=== PATIENT | male | born 1960 | race Caucasian/White ===

== ENCOUNTER 2017-04-04 11:50 | Inpatient (IN) | payer OTHER ==
[2017-04-04 12:56] LABS: % IMMATURE GRANULYOCYTES 0.1 % (0.0-1.1); ABSOLUTE IMMATURE GRANULOCYTES 0.01 10^3/uL (0.00-0.10); ADD DIFF? NO; ADD MORPH? NO; ADD SCAN? NO; ATYPICAL LYMPHOCYTE FLAG 0 (0-99); FRAGMENT RBC FLAG 0 (0-99); HEMATOCRIT 41.9 % (40.0-51.0); HEMOGLOBIN 14.1 g/dL (13.7-17.5); LEFT SHIFT FLG 0 (0-99); LIPEMIA HEMOLYSIS FLAG 80 (0-99); MEAN CELL HEMOGLOBIN 30.5 pg (27.9-34.1); MEAN CELL HEMOGLOBIN CONCENTR. 33.7 g/dL (32.4-36.7); MEAN CELL VOLUME 90.7 fL (81.5-99.8); MEAN PLATELET VOLUME 8.2 fL (8.7-11.7); PLATELET CLUMPS FLAG 0 (0-99); PLATELET COUNT 371 10^3/uL (150-400); RED BLOOD CELL COUNT 4.62 10^6/uL (4.40-6.38); RED CELL DISTRIBUTION WIDTH 15.4 % (11.5-15.2)
--- NOTE | 2017-04-04 13:02 | EDPHY ---
H & P Stated Complaint: VOMITED BLOOD AND DIZZY HPI/ROS: CHIEF COMPLAINT: Alcoholism, coffee ground vomit, vertigo HISTORY OF PRESENT ILLNESS: The patient is a 56 y/o male with a history of alcoholism arriving with his [id number] complaining of possibly vomiting blood. The patient was sober for three months after moving to this area but relapsed one month ago. A week to ten days ago, he fell and hit his head. His last drink was around midnight or 1:00 AM, 12 hours ago. This morning he vomited once and it had the texture and appearance of coffee grounds. He has been experiencing frequent nosebleeds. He has been taking aspirin frequently over the past month. He denies alcohol withdrawal seizures. He is requesting help with his alcoholism and anticipated withdrawal. He has been to Alcoholics Anonymous and inpatient rehabilitation in the past. He has maintained more extended sobriety in the past. He has had vertigo in the past and is experiencing an episode today. REVIEW OF SYSTEMS: A ten point review of systems was performed and is negative with the exception of the items mentioned in the HPI and the following--neck pain, headaches, possible sleep apnea. Past medical history: 1. Alcoholism 2. Headache Past surgical history: 1. Orthopedic surgeries including ACL, 2 back surgeries, carpal tunnel release Family history: Non-contributory Social history: Moved here 3 months ago, originally from [place], PCP in [place] is Dr. 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 General Appearance: Alert. Vital signs reviewed. Blood pressure 179/112. Eyes: Pupils equal and round, no conjunctival injection, no discharge. Anicteric. ENT, Mouth: Mucous membranes are moist, no oropharyngeal erythema or edema. Neck: No lymphadenopathy, supple. Head: Scab to the occipital area. Respiratory: Lungs are clear to auscultation; no wheezes, rales, or rhonchi. Cardiovascular: Regular rate and rhythm; no murmur, rub, or gallop. Gastrointestinal: Abdomen is soft and nontender, no masses or organomegaly, bowel sounds normal. Skin: Warm and dry, no rashes on exposed skin, normal color. Back: Nontender to palpation over the thoracolumbar spine. No CVAT. Extremities: No lower extremity edema, no calf tenderness or swelling. Neurological: Alert and oriented. Moving all four extremities easily and equally. Psychiatric: Normal affect. - Personal History Current Tetanus Diphtheria and Acellular Pertussis (TDAP): Yes Tetanus Vaccine Date: < 10 YEARS - Medical/Surgical History Hx Asthma: No Hx Chronic Respiratory Disease: No Hx Diabetes: No Hx Cardiac Disease: No Hx Renal Disease: No Hx Cirrhosis: No Hx Alcoholism: Yes Hx HIV/AIDS: No Hx Splenectomy or Spleen Trauma: No Other PMH: HERNIATED CERVICAL DISC, ORTHO SURGERIES - Social History Smoking Status: Never smoked Constitutional: Initial Vital Signs Temperature (C) 36.8 C 04/04/17 11:54 Heart Rate 96 04/04/17 11:54 Respiratory Rate 16 04/04/17 11:54 Blood Pressure 179/112 H 04/04/17 11:54 O2 Sat (%) 94 04/04/17 11:54 O2 Delivery Mode Room Air Allergies/Adverse Reactions: No Known Allergies Allergy (Unverified 04/04/17 11:58) Home Medications: Medication Instructions Recorded Acamprosate Calcium [Campral 333 666 mg PO DAILY 04/04/17 MG (*)] Cyclobenzaprine [Flexeril 10 MG 10 mg PO HS 04/04/17 (*)] DULoxetine [Cymbalta 60 MG (*)] 60 mg PO HS 04/04/17 Gabapentin [Neurontin 300 MG (*)] 300 mg PO HS 04/04/17 Herbals/Supplements -Info Only 1 ea PO DAILY 04/04/17 Metoprolol Succinate Xr [Toprol Xl 50 mg PO DAILY PRN 04/04/17 50 mg (*)] Multivitamins [Multivitamin (*)] 1 each PO DAILY 04/04/17 Naltrexone HCl 50 mg PO DAILY 04/04/17 QUEtiapine FUMARATE [Seroquel 100 100 mg PO HS 04/04/17 mg (*)] traZODone [traZODONE 100MG (*)] 200 mg PO HS 04/04/17 Pantoprazole Sodium [Protonix 40mg 40 mg PO DAILY #30 tab 04/06/17 (*)] chlordiazePOXIDE 25MG PREPK#6 1 btl TAKEHOME DAILY #1 btl 04/06/17 [Librium 25 mg Prepack#6] Medical Decision Making ED Course/Re-evaluation: The patient is a 56 y/o male with a history of alcoholism who relapsed one month ago after being sober for three months. He reports falling a week to ten days ago and hitting is head. He has been taking aspirin frequently and this morning he vomited. The vomit had the consistency and appearance of coffee grounds prompting his visit. In addition he has been experiencing vertigo today. He used inpatient rehabilitation services and alcoholics anonymous prior with success. Due to his use of aspirin, his fall, and his symptoms I will order a head CT to rule out any injury. I suspect he is going through early alcohol withdrawal. Head CT negative for ICH. Bloodwork shows H/H of 14 and 41. No evidence of blood loss anemia. BAL 247. Alk phos elevated. 1410: I reassessed this patient and found his condition unchanged. He is not having symptoms of acute vertigo. 1505: I reassessed this patient and informed him of my plan to keep him here for observation and aid in detoxifying. He is comfortable with this plan. I believe that he is sincere in his desire for sobriety. Differential Diagnosis: I considered a ddx that includes but is not limited to alcohol intoxication, impending alcohol withdrawal, gastritis, pancreatitis. - Data Points Laboratory Results: Laboratory Results 04/04/17 12:52 04/04/17 12:52 Medications Given: Discontinued Medications Acetaminophen (Tylenol) 650 mg PO Q4HRS PRN PRN Reason: Pain, Mild/Fever, Can Take PO Stop: 10/01/17 15:30 Last Admin: 04/05/17 14:29 Dose: 650 mg Duloxetine HCl (Cymbalta) 60 mg PO HS [facility]ERRICK Stop: 10/01/17 20:59 Last Admin: 04/05/17 20:30 Dose: 60 mg Folic Acid (Folic Acid) 1 mg PO DAILY DERRICK Stop: 10/02/17 08:59 Last Admin: 04/06/17 09:39 Dose: 1 mg Gabapentin (Neurontin) 300 mg PO HS D[facility]ICK Stop: 10/01/17 20:59 Last Admin: 04/05/17 20:30 Dose: 300 mg Sodium Chloride (Ns) 1,000 mls @ 0 mls/hr IV ONCE ONE; Wide Open PRN Reason: Protocol Stop: 04/04/17 14:19 Last Admin: 04/04/17 14:27 Dose: 1,000 mls Sodium Chloride (Ns) 1,000 mls @ 0 mls/hr IV ONCE ONE PRN Reason: Wide Open Stop: 04/04/17 15:18 Last Admin: 04/04/17 15:18 Dose: 1,000 mls Sodium Chloride (1/2 Ns) 1,000 mls @ 125 mls/hr IV CONT [facility]ERRICK Stop: 10/01/17 15:44 Last Admin: 04/05/17 08:05 Dose: 1,000 mls Pantoprazole Sodium 40 mg/ (Sodium Chloride) 100 mls @ 200 mls/hr IV ONCE ONE Stop: 04/04/17 15:59 Last Admin: 04/04/17 18:56 Dose: 100 mls Pantoprazole Sodium 80 mg/ (Sodium Chloride) 100 mls @ 10 mls/hr IV Q10H [facility] Stop: 10/01/17 15:29 Last Admin: 04/04/17 16:45 Dose: Not Given Thiamine HCl 500 mg/ Sodium (Chloride) 105 mls @ 210 mls/hr IV DAILY [facility] Stop: 04/05/17 09:29 Last Admin: 04/05/17 09:34 Dose: 105 mls Pantoprazole Sodium 40 mg/ (Sodium Chloride) 100 mls @ 200 mls/hr IV BID [facility] Stop: 10/01/17 20:59 Last Admin: 04/06/17 09:39 Dose: 100 mls Lorazepam (Ativan) 1 mg PO EDNOW ONE Stop: 04/04/17 13:16 Last Admin: 04/04/17 13:21 Dose: 1 mg Lorazepam (Ativan Injection) 1 mg IVP EDNOW ONE Stop: 04/04/17 14:36 Last Admin: 04/04/17 14:37 Dose: 1 mg Lorazepam (Ativan) 1 mg PO Q4HRS PRN PRN Reason: Agitation if able to take PO Stop: 10/01/17 15:30 Last Admin: 04/05/17 20:31 Dose: 1 mg Lorazepam (Ativan Injection) 0.5 - 3 mg IVP Q30M PRN PRN Reason: CIWA-Ar score greater than 15 Stop: 10/01/17 15:30 Last Admin: 04/05/17 05:28 Dose: 2 mg Metoprolol Succinate (Toprol Xl) 50 mg PO DAILY [facility] Stop: 10/01/17 08:59 Last Admin: 04/06/17 09:39 Dose: 50 mg Multivitamins (Tab-A-Alexander) 1 each PO DAILY [facility] Stop: 10/02/17 08:59 Last Admin: 04/06/17 09:39 Dose: 1 each Ondansetron HCl (Zofran Odt) 4 mg PO Q4HRS PRN PRN Reason: Nausea/Vomiting, Use 1st Stop: 10/01/17 15:30 Last Admin: 04/04/17 16:51 Dose: 4 mg Quetiapine Fumarate (Seroquel) 100 mg PO [facility] Stop: 10/01/17 20:59 Last Admin: 04/05/17 20:30 Dose: 100 mg Sodium Bicarbonate (Sodium Bicarbonate) 50 meq IVP ONCE ONE Stop: 04/04/17 15:39 Last Admin: 04/04/17 16:45 Dose: Not Given Trazodone HCl (Trazodone) 200 mg PO [facility] Stop: 10/02/17 21:44 Last Admin: 04/05/17 22:59 Dose: 200 mg Departure - Departure Disposition: [facility] Inpatient Acute Clinical Impression: Alcohol abuse, Coffee ground emesis Condition: Good Report Scribed for: Lor Gilliam Report Scribed by: Hiral Torres Date of Report: 04/04/17 Time of Report: 13:53 Physician Review and Approval Statement: 04/04/17 13:01 Portions of this note were transcribed by the medical researcher. I, Dr. Lor Gilliam, personally performed the history, physical exam, and medical decision- making; and confirmed the accuracy of the information in the transcribed note.
[2017-04-04] MEDS ORDERED: LORazepam 1 MG TAB PO ONE (13:15)
[2017-04-04 13:23] LABS: ALANINE AMINOTRANSFERASE 38 IU/L (21-72); ALBUMIN 4.7 g/dL (3.5-5.0); ALKALINE PHOSPHATASE 205 IU/L (38-126); ANION GAP 29 mEq/L (8-16); ASPARTATE AMINOTRANSFERASE 43 IU/L (17-59); BILIRUBIN,TOTAL 0.6 mg/dL (0.1-1.4); CALCIUM 10.7 mg/dL (8.5-10.4); CARBON DIOXIDE 15 mEq/l (22-31); CHLORIDE 101 mEq/L (97-110); GLOMERULAR FILTRATION RATE > 60; GLUCOSE 101 mg/dL (70-100); MAGNESIUM 2.1 mg/dL (1.6-2.3); POTASSIUM 4.9 mEq/L (3.5-5.2); SODIUM 145 mEq/L (134-144); TOTAL PROTEIN > 11.0 g/dL (6.3-8.2)
[2017-04-04 13:42] LABS: INR 1.14 (0.83-1.16); PROTIME(PATIENT) 14.5 SEC (12.0-15.0)
[2017-04-04 13:43] LABS: APTT 27.8 SEC (23.0-38.0)
[2017-04-04] MEDS ORDERED: NS 1,000 ML IV ONE ×2 (14:18→15:17)
[2017-04-04 14:19] LABS: ETHANOL SERUM 247 mg/dL (0-10)
[2017-04-04] MEDS ORDERED: LORazepam 2 MG/ML INJ ONE (14:34)
[2017-04-04] MEDS ORDERED: LORazepam 2 MG/ML INJ IVP ONE (14:35)
[2017-04-04] MEDS ORDERED: PANTOPRAZOLE SODIUM 40 MG in NS 100 ML IV ONE (15:30)
[2017-04-04] MEDS ORDERED: PANTOPRAZOLE SODIUM 80 MG in NS 100 ML IV SCH ×2 (15:30→17:00)
[2017-04-04] MEDS ORDERED: hydrALAZINE 25 MG TAB PO PRN (15:31)
[2017-04-04] MEDS ORDERED: ONDANSETRON 4 MG/2 ML VIAL IVP PRN (15:31)
[2017-04-04] MEDS ORDERED: ACETAMINOPHEN 325 MG TAB PO PRN (15:31)
[2017-04-04] MEDS ORDERED: ONDANSETRON DISINTEGRATING 4 MG TAB PO PRN (15:31)
[2017-04-04] MEDS ORDERED: LORazepam 1 MG TAB PO PRN (15:31)
[2017-04-04] MEDS ORDERED: SODIUM BICARBONATE 50 MEQ/50 ML SYR IVP ONE (15:38)
--- NOTE | 2017-04-04 16:30 | GHP ---
[f rep st] HISTORY AND PHYSICAL DATE OF ADMISSION: 04/04/2017 CHIEF COMPLAINT: Coffee-grounds emesis and alcohol intoxication with impending withdrawal. HISTORY OF PRESENT ILLNESS: The patient is a 56-year-old male with history of alcoholism, anxiety, and chronic neck pain who presents to the emergency department with his ixxatp-za-qxk after a recent relapse. He states he drinks at least a 5th of day of whichever hard liquor is the least expensive. His last drink was reportedly around midnight the night before arrival. He just moved to the area 3 months ago and maintained sobriety for several months; however, 1 month ago, he began drinking heavily again. He does endorse a history of alcohol withdrawal but denies withdrawal seizures. He awoke early this morning and vomited once. He initially endorsed this as red blood. He later described it is appearing like coffee grounds. His sister- in-law says she thought this looked more like coffee grounds. He has also had some dizziness. He denies BRBPR or melanotic stools. He also reports frequent nosebleeds, which have been intermittent for the past month. He has been taking frequent aspirin and nsaid's for a headache. He reports a history of anxiety, and notes he has had elevated blood pressures in the past related to alcohol withdrawal. In addition, he gives a history of falling and hitting his head approximately [address] scan in the emergency department was negative for an intracranial bleed. He has successfully maintained sobriety in the past with Alcoholics Anonymous and has also done inpatient rehab. He wishes to safely withdraw from alcohol and maintain sobriety and is asking for a resource counseling. He is admitted to the hospital for further evaluation of his coffee-grounds emesis and acute alcohol intoxication with impending withdrawal. PAST MEDICAL HISTORY: 1. Alcohol dependence. 2. History of alcohol withdrawal without prior seizures. 3. Chronic neck pain. 4. Anxiety. PAST SURGICAL HISTORY: Multiple orthopedic surgeries including ACL repair, 2 back surgeries, carpal tunnel, and a previous neck surgery. FAMILY HISTORY: His brother has esophageal cancer. SOCIAL HISTORY: The patient moved here 3 months ago from [place]. He has worked as a sales service professional. He is currently unemployed. He presents with his [id number]. REVIEW OF SYSTEMS: Ten-point review of systems was performed and is negative except as per HPI. OBJECTIVE: VITAL SIGNS: Currently, temperature is 36.7, blood pressure 158/82 , heart rate 89, respiratory rate 16. He is 98% on room air. GENERAL: Patient is awake, alert, and oriented, though generally a poor historian likely secondary to his acute alcohol intoxication. HEENT: Head is atraumatic, normocephalic. Pupils equal, round, and reactive to light. Extraocular muscles intact. Oropharynx is clear. Mucous members are moist. He has a small hematoma on the right parietal scalp region with some dried blood. NECK: Supple. There is no JVD. Regular rate and rhythm without murmur. LUNGS: Clear to auscultation bilaterally. ABDOMEN: Soft, nondistended, nontender with normoactive bowel sounds. EXTREMITIES: Without cyanosis, clubbing, or edema. NEUROLOGIC: Grossly nonfocal. There is no asterixis. No significant tremors noted. LABORATORY DATA: CBC reveals a normal hemoglobin of 14.1, white count is normal. INR is normal at 1.1. His lactic acid is elevated at 5.3. Complete metabolic panel was remarkable for sodium 145, bicarb 15, anion gap of 29, glucose 101, calcium 10.7, alkaline phosphatase 205, total protein greater than 11. Ethyl alcohol level is 247. Head CT from the emergency department is negative for acute intracranial bleed. There is some minimal swelling in the right parietal scalp, which correlates with exam. ASSESSMENT AND PLAN: The patient is a 56-year-old male with history of alcohol dependence who presents to the emergency department reporting coffee-grounds emesis and alcohol intoxication desiring withdrawal management. 1. Acute alcohol intoxication with impending withdrawal. No prior h/o seizures. BAL is 247 in the ED. The patient wishes to maintain sobriety; therefore, he will be admitted for alcohol withdrawal under [facility] protocol in the step down unit. PRN bzd's. He will receive thiamine, vitamins, and folic acid. Case Management consult is requested for further resource counseling to help him develop a sobriety plan at discharge. 2. Coffee-ground emesis. This was an isolated event. It could be related to his frequent nose bleeds possibly passing blood into his stomach. Also note frequent aspirin, nsaid and alcohol use as risk factors for gastritis / PUD dz. I think this is unlikely to be variceal bleed as that would be more likely to present as bright red blood. He is hemodynamically stable. His hemoglobin is 14.1. Will continue to observe him in the step-down unit for any further emesis. I will give him IV Protonix BID. Trend his H&H and hemoccult stool. If he has any further episodes or if his hemoglobin trends down, we will consult GI for possible endoscopy. Dr. Shelton aware, but has not been formally consulted. 3. Anion gap metabolic acidosis. Likely an alcoholic ketoacidosis. He presents with a serum bicarb of 15 with a significant anion gap. Will give him an amp of sodium bicarb now along with IV fluids. Will continue to trend this. 4. Elevated lactic acid. I do not think this represents sepsis. This is likely secondary to his decreased utilization in the setting of alcohol abuse. 5. Elevated blood pressure. Will treat for now with p.r.n. hydralazine. He may warrant initiation of antihypertensives at discharge. 6. Hyperproteinemia. His total serum protein is greater than 11. He has a normal albumin. We will check an SPEP and serum free light chains. 7. Anxiety. Will continue his outpatient medications once his medication reconciliation is completed. 8. Deep venous thrombosis prophylaxis. Pharmacologic is contraindicated given his report of coffee-grounds emesis. Will place SCD's 9. Code status: Patient is full code. 10. Disposition: Patient admitted to inpatient status. Expect he will require greater than 48 hours hospitalization for ongoing management of his impending alcohol withdrawal and associated complications. /[id number]/MODL MTDD
[2017-04-04] MEDS: 1/2 NS 1,000 ML IV SCH (16:46)
[2017-04-04] MEDS: METOPROLOL SUCCINATE XR 50 MG TAB PO SCH (16:52)
--- NOTE | 2017-04-04 16:57 | ASMTCASEMG ---
Living Arrangements What is your living Answers: With Other Relative(s) arrangement? Who do you live with? Type Of Residence What kind of residence do Answers: House you live in? Case Management Evaluation Psychosocial Needs: Answers: Active Substance Abuse Notes: ETOH Discharge Plan Comments Coordination Status Comments Notes: Pt. in FED with his yacjuw-op-cug Clarisa. Pt has a history of alcoholism with a recent relapse after 4 months of sobriety. Pt indicated his last use of alcohol was at 1am and his YARI was 247. Pt stated he is and new to the area; he is currently living with his brother and uwvvxa-uc-fdw. He is employed and has [employer] insurance. He would like local referrals for a PCP and mental health. He is open to mental health services to address his ETOH use and he would also like connections to local AA groups/meetings. Pt also open to inpatient treatment (previous inpatient treatment in [place]). DC plan LEONARDA SEGAL to follow. Date Signed: 04/04/2017 04:57 PM Electronically Signed By:Tatyana Nash LCSW
[2017-04-04] MEDS: THIAMINE HCL 500 MG in NS 100 ML IV SCH (18:56)
[2017-04-04] MEDS: PANTOPRAZOLE SODIUM 40 MG in NS 100 ML IV SCH ×2 (18:56→21:10)
[2017-04-04] MEDS: LORazepam 2 MG/ML INJ IVP PRN ×2 (18:56→20:49)
[2017-04-04 19:50] LABS: PHENCYCLIDINE URINE BCH < 6 ng/ml (NEGATIVE); PHENCYCLIDINE URINE BCH NEGATIVE (NEGATIVE); TETRAHYDROCANNABINOL URINE 79 ng/mL (NEGATIVE)
--- NOTE | 2017-04-04 20:03 | PDMN ---
Medical Necessity Medical necessity: Pt. meets INPT MCG criteria under Substance related disorders for acute alcohol intoxication with persistent impending alcohol withdrawl, (ETOH level 247), coffee ground emesis x 1, anion gap acidosis, elevated lactic acidosis (5.3) requiring ongoing impending alcohol withdrawl management and asssociated complications; > 2 MN LOS anticipated.
[2017-04-04 20:37] LABS: HEMATOCRIT 30.8 % (40.0-51.0); HEMOGLOBIN 10.3 g/dL (13.7-17.5)
[2017-04-04] MEDS: GABAPENTIN 300 MG CAP PO SCH (20:49)
[2017-04-04] MEDS: QUEtiapine FUMARATE 100 MG TAB PO SCH (20:49)
[2017-04-04] MEDS: DULoxetine 60 MG CAP PO SCH (20:49)
[2017-04-04] MEDS ORDERED: DEXMEDETOMIDINE HCL 400 MCG in NS 100 ML IV SCH (21:30)
[2017-04-05] MEDS: LORazepam 2 MG/ML INJ IVP PRN ×2 (00:06→05:28)
[2017-04-05] MEDS: 1/2 NS 1,000 ML IV SCH ×2 (00:10→08:05)
[2017-04-05 03:07] LABS: HEMATOCRIT 33.3 % (40.0-51.0); HEMOGLOBIN 11.4 g/dL (13.7-17.5)
[2017-04-05 05:47] LABS: % IMMATURE GRANULYOCYTES 0.4 % (0.0-1.1); ABSOLUTE IMMATURE GRANULOCYTES 0.02 10^3/uL (0.00-0.10); ADD DIFF? NO; ADD MORPH? NO; ADD SCAN? NO; ATYPICAL LYMPHOCYTE FLAG 0 (0-99); FRAGMENT RBC FLAG 0 (0-99); HEMATOCRIT 34.6 % (40.0-51.0); HEMOGLOBIN 11.5 g/dL (13.7-17.5); LEFT SHIFT FLG 0 (0-99); LIPEMIA HEMOLYSIS FLAG 80 (0-99); MEAN CELL HEMOGLOBIN 30.1 pg (27.9-34.1); MEAN CELL HEMOGLOBIN CONCENTR. 33.2 g/dL (32.4-36.7); MEAN CELL VOLUME 90.6 fL (81.5-99.8); MEAN PLATELET VOLUME 8.2 fL (8.7-11.7); PLATELET CLUMPS FLAG 0 (0-99); PLATELET COUNT 211 10^3/uL (150-400); RED BLOOD CELL COUNT 3.82 10^6/uL (4.40-6.38); RED CELL DISTRIBUTION WIDTH 15.1 % (11.5-15.2)
[2017-04-05 06:01] LABS: ALANINE AMINOTRANSFERASE 32 IU/L (21-72); ALBUMIN 3.8 g/dL (3.5-5.0); ALKALINE PHOSPHATASE 134 IU/L (38-126); ANION GAP 12 mEq/L (8-16); ASPARTATE AMINOTRANSFERASE 34 IU/L (17-59); CALCIUM 9.5 mg/dL (8.5-10.4); CARBON DIOXIDE 23 mEq/l (22-31); CHLORIDE 97 mEq/L (97-110); CREATININE 0.8 mg/dL (0.7-1.3); GLOMERULAR FILTRATION RATE > 60; GLUCOSE 93 mg/dL (70-100); MAGNESIUM 1.8 mg/dL (1.6-2.3); SODIUM 132 mEq/L (134-144); TOTAL PROTEIN 9.5 g/dL (6.3-8.2)
[2017-04-05] MEDS: PANTOPRAZOLE SODIUM 40 MG in NS 100 ML IV SCH ×2 (08:58→21:11)
[2017-04-05] MEDS: FOLIC ACID 1 MG TAB PO SCH (09:00)
[2017-04-05] MEDS: MULTIVITAMINS 1 EACH TAB PO SCH (09:00)
[2017-04-05] MEDS: METOPROLOL SUCCINATE XR 50 MG TAB PO SCH (09:01)
[2017-04-05] MEDS: THIAMINE HCL 500 MG in NS 100 ML IV SCH (09:34)
--- NOTE | 2017-04-05 09:46 | HOSPPROG ---
Hospitalist Progress Note Assessment/Plan: 56 yo M w alcoholism here w coffee ground emesis and blood loss anemia ABLA: concern for UGIB given alcohol and nsaids brother w esophageal CA, patient had normal egd 2 years ago ppi alcoholism: on CIWA mild withdrawal at this point proph: scd's protein gap: mm workup initiated dispo: inpatient Subjective: no further hematemesis. endorses frequent NSAID use. case d/w dr fontenot Objective: Vital Signs Temp Pulse Resp BP Pulse Ox 37.0 C 78 20 155/93 H 96 04/05/17 08:00 04/05/17 09:01 04/05/17 04:00 04/05/17 09:01 04/05/17 08:00 Laboratory Results 04/05/17 05:35 04/05/17 05:35 04/04/17 04/05/17 04/06/17 05:59 05:59 05:59 Intake Total 2278 Output Total 2050 Balance 228 PT 14.5 SEC (12.0-15.0) 04/04/17 12:36 INR 1.14 (0.83-1.16) 04/04/17 12:36 - Physical Exam Constitutional: no apparent distress, appears nourished Eyes: PERRL, anicteric sclera Ears, Nose, Mouth, Throat: moist mucous membranes, hearing normal Cardiovascular: regular rate and rhythym, no murmur, rub, or gallop Respiratory: no respiratory distress, no rales or rhonchi Gastrointestinal: normoactive bowel sounds, soft, non-tender abdomen, No guarding, No rebound Genitourinary: No marie in urethra Skin: warm, normal color Musculoskeletal: full muscle strength, no muscle tenderness Neurologic: AAOx3, sensation intact bilaterally Psychiatric: interacting appropriately, not anxious Lymph, Heme, Immunologic: no cervical LAD
[2017-04-05] MEDS ORDERED: MIDAZOLAM 2 MG/2 ML VIAL ONE (09:49)
[2017-04-05] MEDS ORDERED: PROPOFOL/EMULSION 500 MG/50 ML BOTTLE IV ONE (09:50)
[2017-04-05] MEDS ORDERED: LIDOCAINE 2% 100 MG/5 ML SYR ONE (09:50)
--- NOTE | 2017-04-05 10:16 | GIREPORT ---
[facility] - Endoscopy Department Patient Name: Jose Martin Orellana Procedure Date: 04/05/2017 10:01 AM Patient Type: Inpatient Attending MD/ ER Physician: Jason Shelton MD Procedure: Upper GI endoscopy Indications: Hematemesis Providers: Jason Shelton MD Medicines: Propofol per Anesthesia Complications: No immediate complications. Description of Procedure: After obtaining informed consent, the endoscope was passed under direct vision. Throughout the procedure, the patient's blood pressure, pulse, and oxygen saturations were monitored continuous ly. The Endoscope was introduced through the mouth, and advanced to the second part of duodenum. The upper GI endoscopy was accomplished without difficulty. The patient tolerated the procedure well . Findings: The esophagus was normal. Diffuse mild inflammation characterized by congestion (edema), erythema and granularity was foun d in the gastric fundus, in the gastric body and in the gastric antrum. The examined duodenum was normal. Estimated Blood Loss: Estimated blood loss: none. Post Op Diagnosis: - Normal esophagus. - Alcoholic gastritis. - Normal examined duodenum. - No specimens collected. - No evidence for NSAID induced injury or portal hypertension. Recommendation: - Resume regular diet. - Use Protonix (pantoprazole) 40 mg PO daily for 4 weeks. - [facility]. - Thank you for allowing me to be involved in the care of your patient. Attending Participation: I personally performed the entire procedure without the assistance of a fellow, resident or surg ical server service assistant. Jason Shelton MD Jason Shelton MD 04/05/2017 10:15:59 AM Number of Addenda: 0 Note Initiated On: 04/05/2017 10:01 AM [email or web address]
[2017-04-05] MEDS ORDERED: ALBUTEROL 3 ML DEYVIAL IH PRN (10:26)
[2017-04-05] MEDS ORDERED: NALOXONE HCL 0.4 MG/ML INJ IVP PRN (10:26)
[2017-04-05] MEDS ORDERED: ONDANSETRON 4 MG/2 ML VIAL IVP PRN (10:26)
[2017-04-05] MEDS ORDERED: PROMETHAZINE HCL 25 MG/ML INJ IVP PRN (10:26)
[2017-04-05] MEDS ORDERED: ACETAMINOPHEN 500 MG TAB PO PRN (10:26)
[2017-04-05] MEDS ORDERED: DEXAMETHASONE 4 MG/ML VIAL IVP PRN (10:26)
--- NOTE | 2017-04-05 10:26 | PDANEPAE ---
ANE History of Present Illness Egd for GI bleed ANE Past Medical History - Pulmonary History Hx Oxygen in Use at Home: No Hx Sleep Apnea: No - Endocrine History Hx Diabetes: No - GI History Hx Gastrointestinal Disorders: Yes Gastrointestinal History Comment: GI bleed - Chronic Pain History Chronic Pain: Yes ANE Review of Systems Review of systems is: negative Review of Systems: - Exercise capacity Exercise capacity: >=4 METS ANE Patient History - Allergies Allergies/Adverse Reactions: No Known Allergies Allergy (Unverified 04/04/17 11:58) - Home Medications Home medications: home medication list seen and reviewed Home Medications: Acamprosate Calcium [Campral 333 MG (*)] 666 mg PO DAILY 04/04/17 [Last Taken ] Aspirin [Aspirin 325 mg (*)] 1,300 mg PO DAILY PRN 04/04/17 [Last Taken 04/04/17 ] Cyclobenzaprine [Flexeril 10 MG (*)] 10 mg PO HS 04/04/17 [Last Taken 04/03/17] DULoxetine [Cymbalta 60 MG (*)] 60 mg PO HS 04/04/17 [Last Taken 04/02/17] Gabapentin [Neurontin 300 MG (*)] 300 mg PO HS 04/04/17 [Last Taken 04/02/17] Herbals/Supplements -Info Only 1 ea PO DAILY 04/04/17 [Last Taken 04/02/17] Metoprolol Succinate Xr [Toprol Xl 50 mg (*)] 50 mg PO DAILY PRN 04/04/17 [Last Taken 04/03/17] Multivitamins [Multivitamin (*)] 1 each PO DAILY 04/04/17 [Last Taken 04/02/17] Naltrexone HCl 50 mg PO DAILY 04/04/17 [Last Taken 04/02/17] QUEtiapine FUMARATE [Seroquel 100 mg (*)] 100 mg PO HS 04/04/17 [Last Taken 10/14] celeCOXIB [Celebrex (*)] 200 mg PO DAILY PRN 04/04/17 [Last Taken 04/02/17] traZODone [traZODONE 100MG (*)] 200 mg PO HS 04/04/17 [Last Taken 04/03/17] - NPO status NPO Status: no food or drink >8 hours - Anes Hx Anes Hx: no prior problems - Smoking Hx Smoking Status: Never smoked - Alcohol Use Alcohol Use: Heavy - Family Anes Hx Family Anes Hx: none ANE Labs/Vital Signs - Labs Result Diagrams: 04/05/17 05:35 04/05/17 05:35 - Vital Signs Blood Pressure: 155/93 Heart Rate: 78 Respiratory Rate: 20 O2 Sat (%): 96 Height: 180.34 cm Weight: 90.2 kg ANE Physical Exam - Airway Neck exam: FROM Mallampati Score: Class 2 Mouth exam: normal dental/mouth exam - Pulmonary Pulmonary: no respiratory distress - Cardiovascular Cardiovascular: regular rate and rhythym - ASA Status ASA Status: III ANE Anesthesia Plan Total IV Anesthesia: Yes Urgent/Emergent Case: Alicia jefferson completed preop but documented later for safe timely pt care
[2017-04-05 10:55] VITALS: O2SAT 95
--- NOTE | 2017-04-05 17:34 | ASMTCMCOM ---
CM Note CM Note Notes: Reviewed chart re: d/c poc, pt's progress. Pt s/p upper EGD today for concern of UGIB and family hx of esophageal ca. No signif findings. Discharge plan remains TBD. CM will need to meet w/ pt to discuss ETOH and resources; will cont to follow. Date Signed: 04/05/2017 05:33 PM Electronically Signed By:Riana Bautista RN
[2017-04-05] MEDS: DULoxetine 60 MG CAP PO SCH (20:30)
[2017-04-05] MEDS: QUEtiapine FUMARATE 100 MG TAB PO SCH (20:30)
[2017-04-05] MEDS: GABAPENTIN 300 MG CAP PO SCH (20:30)
[2017-04-05 20:41] VITALS: RESP 18; TEMP 97.7
[2017-04-05] MEDS ORDERED: traZODone 100 MG TAB PO SCH (21:45)
[2017-04-06 05:37] LABS: % IMMATURE GRANULYOCYTES 0.4 % (0.0-1.1); ABSOLUTE IMMATURE GRANULOCYTES 0.02 10^3/uL (0.00-0.10); ADD DIFF? NO; ADD MORPH? NO; ADD SCAN? NO; ATYPICAL LYMPHOCYTE FLAG 0 (0-99); FRAGMENT RBC FLAG 0 (0-99); HEMATOCRIT 35.5 % (40.0-51.0); LEFT SHIFT FLG 10 (0-99); LIPEMIA HEMOLYSIS FLAG 90 (0-99); MEAN CELL HEMOGLOBIN 30.5 pg (27.9-34.1); MEAN CELL HEMOGLOBIN CONCENTR. 33.8 g/dL (32.4-36.7); MEAN CELL VOLUME 90.1 fL (81.5-99.8); MEAN PLATELET VOLUME 8.6 fL (8.7-11.7); PLATELET CLUMPS FLAG 0 (0-99); PLATELET COUNT 210 10^3/uL (150-400); RED BLOOD CELL COUNT 3.94 10^6/uL (4.40-6.38); RED CELL DISTRIBUTION WIDTH 14.2 % (11.5-15.2)
[2017-04-06 05:50] LABS: MAGNESIUM 1.9 mg/dL (1.6-2.3)
[2017-04-06] MEDS: FOLIC ACID 1 MG TAB PO SCH (09:39)
[2017-04-06] MEDS: MULTIVITAMINS 1 EACH TAB PO SCH (09:39)
[2017-04-06] MEDS: PANTOPRAZOLE SODIUM 40 MG in NS 100 ML IV SCH (09:39)
[2017-04-06] MEDS: METOPROLOL SUCCINATE XR 50 MG TAB PO SCH (09:39)
[2017-04-06 09:40] VITALS: PULSE 90
--- NOTE | 2017-04-06 10:49 | HOSPPROG ---
Hospitalist Progress Note Assessment/Plan: 56 yo M w alcoholism here w coffee ground emesis and blood loss anemia ABLA: concern for UGIB given alcohol and nsaids brother w esophageal CA, patient had normal egd 2 years ago ppi scope w gastritis only alcoholism: on CIWA mild withdrawal at this point remains mild proph: scd's protein gap: mm workup initiated dispo: home today > 30 minutes Subjective: hct stable. feels well. eating. ready for dc Objective: Vital Signs Temp Pulse Resp BP Pulse Ox 36.5 C 90 18 125/80 H 95 04/05/17 20:39 04/06/17 09:39 04/06/17 08:00 04/06/17 09:39 04/06/17 08:00 Laboratory Results 04/06/17 05:25 04/05/17 05:35 04/05/17 04/06/17 04/07/17 05:59 05:59 05:59 Intake Total 2278 900 Output Total 2050 1500 Balance 228 -600 PT 14.5 SEC (12.0-15.0) 04/04/17 12:36 INR 1.14 (0.83-1.16) 04/04/17 12:36 - Physical Exam Constitutional: no apparent distress, appears nourished Eyes: PERRL, anicteric sclera Ears, Nose, Mouth, Throat: moist mucous membranes, hearing normal Cardiovascular: regular rate and rhythym, no murmur, rub, or gallop Respiratory: no respiratory distress, no rales or rhonchi Gastrointestinal: normoactive bowel sounds, soft, non-tender abdomen Genitourinary: no bladder fullness, No marie in urethra Skin: warm, normal color Musculoskeletal: full muscle strength, no muscle tenderness Neurologic: AAOx3, sensation intact bilaterally Psychiatric: interacting appropriately ICD10 Worksheet Patient Problems: Problems Problem Status Onset Coffee ground emesis Acute
[2017-04-06 11:22] VITALS: BP 125/67
--- NOTE | 2017-04-06 11:24 | GDS ---
[f rep st] DISCHARGE SUMMARY DISCHARGE DIAGNOSES: 1. Alcoholic gastritis. 2. Acute blood loss anemia, mild. 3. Alcohol with mild alcohol withdrawal. 4. Protein gap. HOSPITAL COURSE: Please see admission history and physical by Dr. Anna Lindsay. Patient presented with right hematemesis. He had the scope which showed gastritis. His hemoglobin fell from 14-10 and gamaliel to 12. He is eating and drinking. He does take Celebrex and aspirin as an outpatient. He was advi sed to stop. Given a proton pump inhibitor. His alcohol withdrawal was mild. He was given a limite d prescription for 6 Librium tablets. He had a protein greater than 11 with an albumin of 4.7, this fell to 9.5 and 3.8 with hydration. SP EP, UPEP were sent, pending. I will follow up on them and get back in touch with them. /[id number]/MODL
--- NOTE | 2017-04-06 11:52 | ASMTCMCOM ---
CM Note CM Note Notes: Patient has been discharged. CM spoke with patient about ETOH treatment. Encouraged him to go through his insurance first but gave him resources in [place] area including AA meeting list, [facility], [facility]. Date Signed: 04/06/2017 11:52 AM Electronically Signed By:Franci Veras LCSW
[2017-04-07 09:24] LABS: IG KAPPA FREE LIGHT CHAIN 2.15 mg/dL; IG LAMBDA FREE LIGHT CHAIN 1.9 mg/dL; KAPPA/LAMBDA RATIO 1.13
--- NOTE | 2017-04-07 16:33 | ASDISCHSUM ---
Discharge Information Plan Status:Home with No Needs Medically Cleared to Leave:04/06/2017 Discharge Date:04/06/2017 02:28 PM CM D/C Disposition:Home, Routine, Self-Care ADT D/C Disposition:Home, Routine, Self-Care Projected Discharge Date:04/06/2017 12:00 AM Transportation at D/C:Family Discharge Delay Reason: Follow-Up Date:04/06/2017 12:00 AM Discharge Slot: Final Diagnosis:ETOH gastritis, Anemia, ETOH withdrawal Placement Information Patient Contact Information Contact Name:HERB Relationship:Sister Address: Work Phone: City: [facility] Phone: [facility]/[employer] Code: Email: Financial Information Financial Class:HMO and PPO Plans Primary Plan Desc:[employer] Primary Plan Number:[id number] Secondary Plan Desc: Secondary Plan Number: Assessment Information [facility] Initial CM Assessment Living Arrangements What is your living Answers: With Other Relative(s) arrangement? Who do you live with? Type Of Residence What kind of residence do Answers: House you live in? Case Management Evaluation Psychosocial Needs: Answers: Active Substance Abuse Notes: ETOH Discharge Plan Comments Coordination Status Comments Notes: Pt. in [place] with his [id number] Clarisa. Pt has a history of alcoholism with a recent relapse after 4 months of sobriety. Pt indicated his last use of alcohol was at 1am and his YARI was 247. Pt stated he is and new to the area; he is currently living with his brother and [id number]. He is employed and has [employer] insurance. He would like local referrals for a PCP and mental health. He is open to mental health services to address his ETOH use and he would also like connections to local AA groups/meetings. Pt also open to inpatient treatment (previous inpatient treatment in [place]). DC plan LEONARDA SEGAL to follow. Date Signed: 04/04/2017 04:57 PM Electronically Signed By:Tatyana Nash LCSW [facility] Progress Note CM Note CM Note Notes: Reviewed chart re: d/c poc, pt's progress. Pt s/p upper EGD today for concern of UGIB and family hx of esophageal ca. No signif findings. Discharge plan remains TBD. CM will need to meet w/ pt to discuss ETOH and resources; will cont to follow. Date Signed: 04/05/2017 05:33 PM Electronically Signed By:Riana Bautista RN [facility] CM Progress Note CM Note CM Note Notes: Patient has been discharged. CM spoke with patient about ETOH treatment. Encouraged him to go through his insurance first but gave him resources in [place] including AA meeting list, [facility], [facility]. Date Signed: 04/06/2017 11:52 AM Electronically Signed By:Franci Veras LCSW Intervention Information
--- NOTE | 2017-04-10 09:21 | HOSPPROG ---
Hospitalist Progress Note Assessment/Plan: post discharge note: SPEP retunred w elevated kappa spike concerning for multiple myeloma. I have reviewed lab results w oncology MD who agrees. UI have called and emailed patient as well as sent police by his home w my contact info to arrange follow up a [facility]. waiting to hear back Objective: Vital Signs Temp Pulse Resp BP Pulse Ox 36.5 C 90 18 125/67 H 95 04/05/17 20:39 04/06/17 09:39 04/06/17 08:00 04/06/17 11:21 04/06/17 08:00 Laboratory Results 04/06/17 05:25 04/05/17 05:35 PT 14.5 SEC (12.0-15.0) 04/04/17 12:36 INR 1.14 (0.83-1.16) 04/04/17 12:36 ICD10 Worksheet Patient Problems: Problems Problem Status Onset Alcohol abuse Acute Coffee ground emesis Acute
== END 2017-04-06 14:28 | disposition home or self-care (01) | DRG 392 ==
LOC: F2N 16:07
PROVIDERS: ADMIT Hospitalist; ATTEND Hospitalist
PROC: 0DJ08ZZ Inspection of Upper Intestinal Tract, Via Natural or Artificial Opening Endoscopic (ICD-10-PCS; principal; 2017-04-05 09:45)
DX: K29.20 Alcoholic gastritis without bleeding (principal); D62 Acute posthemorrhagic anemia; F10.230 Alcohol dependence with withdrawal, uncomplicated; G89.29 Other chronic pain; F41.9 Anxiety disorder, unspecified; F10.220 Alcohol dependence with intoxication, uncomplicated; E88.09 Other disorders of plasma-protein metabolism, not elsewhere classified; Y90.8 Blood alcohol level of 240 mg/100 ml or more; Z80.0 Family history of malignant neoplasm of digestive organs
CPT/HCPCS: 80307; 86334-90; 97162-GP; 97165-GO; G0480; J2001; J2060; J2250; J2704; J3411

== ENCOUNTER → 2017-04-25 | Outpatient (CLI) | payer OTHER, MEDICAID | LOC: FIMAGING 12:00 | PROVIDERS: ATTEND Internal Medicine Hematology & Oncology | DX: D47.2 Monoclonal gammopathy (principal) ==

== ENCOUNTER → 2017-10-07 | Outpatient (CLI) | payer OTHER, MEDICAID | LOC: FIMAGING 13:32 | PROVIDERS: ATTEND Nurse Practitioner | DX: R22.41 Localized swelling, mass and lump, right lower limb (principal) ==

== ENCOUNTER → 2017-10-15 | Outpatient (CLI) | payer OTHER, MEDICAID | LOC: BMCIMAGING 10:20 | PROVIDERS: ATTEND Emergency Medicine | DX: Z13.828 Encounter for screening for other musculoskeletal disorder (principal); Z86.2 Personal history of diseases of the blood and blood-forming organs and certain disorders involving the immune mechanism ==

== ENCOUNTER → 2018-10-07 | Outpatient (CLI) | payer BC | LOC: BMCIMAGING 08:19 | PROVIDERS: ATTEND Physician Assistant | DX: M17.11 Unilateral primary osteoarthritis, right knee (principal); Z98.890 Other specified postprocedural states ==